=== PATIENT | female | born 1980 | race African-American/Black ===

== ENCOUNTER 2019-09-09 13:04 | Emergency (ER) | payer MEDICARE, MEDICAID ==
[~2019-09-09] VITALS: Ht 160 cm; Wt 52.0 kg
[~2019-09-09 13:04] MED LIST: CARI350T28 PO; HYDR-519 PO
[2019-09-09 13:11] VITALS: BP 117/70
== END 2019-09-09 13:31 | disposition left against medical advice (07) ==
LOC: ER 13:04
DX: R68.89 Other general symptoms and signs (principal); Z53.21 Procedure and treatment not carried out due to patient leaving prior to being seen by health care provider